=== PATIENT | male | born 1955 | race Caucasian/White ===

== ENCOUNTER 2020-09-26 14:55 | Emergency (ER) | payer OTHER ==
[~2020-09-26] VITALS: Ht 182.9 cm; Wt 95.3 kg
[2020-09-26] MEDS ORDERED: VENTOLIN HFA 1818 GM INH (15:49)
[2020-09-26] MEDS ORDERED: ZOFRAN ODT4 MG PO (15:49)
[2020-09-26 15:56] VITALS: BP 123/64
== END 2020-09-26 15:57 | disposition home or self-care (01) ==
LOC: M.ERS 14:55
DX: U07.1 COVID-19 (principal); Z77.22 Contact with and (suspected) exposure to environmental tobacco smoke (acute) (chronic)

== ENCOUNTER 2020-10-04 09:11 | Emergency (ER) | payer OTHER ==
[~2020-10-04] VITALS: Ht 182.9 cm; Wt 90.7 kg
[~2020-10-04 09:11] MED LIST: VENTOLIN HFA 1818 GM INH; ZOFRAN ODT4 MG PO
[2020-10-04 10:40] VITALS: BP 134/72
== END 2020-10-04 10:41 | disposition home or self-care (01) ==
LOC: M.ERS 09:11
DX: R53.83 Other fatigue (principal); Z20.822 Contact with and (suspected) exposure to COVID-19; R09.89 Other specified symptoms and signs involving the circulatory and respiratory systems; Z79.51 Long term (current) use of inhaled steroids; Z79.899 Other long term (current) drug therapy; Z87.891 Personal history of nicotine dependence